=== PATIENT | female | born 1975 | race Caucasian/White ===

== ENCOUNTER 2016-05-28 19:59 | Observation (INO) | payer MEDICAID ==
[2016-05-28] MEDS ORDERED: ONDANSETRON HCL/PF 2 MG/ML VIAL IV ONE (22:03)
[2016-05-28] MEDS ORDERED: MORPHINE SULFATE 4 MG/ML SYRG IV ONE (22:04)
[2016-05-28] MEDS ORDERED: MORPHINE SULFATE 4 MG/ML SYRG ONE (22:12)
[2016-05-28] MEDS ORDERED: ONDANSETRON HCL/PF 2 MG/ML VIAL ONE (22:12)
[2016-05-28] MEDS ORDERED: DIATRIZOATE MEGLU/DIATRIZO SOD 30 ML BTL PO ONE (22:18)
[2016-05-28 22:31] LABS: Albumin * 3.3 gm/dl (3.4-5.0); Anion Gap 12.8 mmol/L (6.8-13.8); BUN/Creatinine Ratio 8.3 (9.0-21.6); Bilirubin, Total 0.7 mg/dL (0.0-1.1); Ca. Corrected For Albumin 8.9 mg/dL (8.4-10.2); Calcium * 8.7 mg/dL (7.9-10.9); Carbon Dioxide 25.3 mmol/L (24-32.6); Hematocrit 40.3 % (37.0-47.0); Hemoglobin 13.7 gm/dL (12.5-16.0); Mean Cell Volume 93.1 fl (78-100); Mean Corpuscular Hemoglobin 31.6 pg (27-31); Mean Platelet Volume 10.7 fl (6.0-9.5); Platelet Count 239 K/mm3 (150-450); Potassium 3.1 mmol/L (3.4-4.6); Red Blood Count 4.33 M/mm3 (4.2-5.4); Red Cell Distribution Width 13.2 % (11.5-14.0); White Blood Count 15.9 K/mm3 (4.0-10.5)
[2016-05-28 23:22] LABS: Urine Bilirubin Negative (NEGATIVE); Urine Ketone Negative (NEGATIVE); Urine Nitrite Negative (NEGATIVE); Urine Protein Negative (NEGATIVE); Urine Urobilinogen Normal (NORMAL); Urine pH 5.5 pH (5.0-7.0)
--- NOTE | 2016-05-28 23:36 | ERNOTE ---
Abdominal HPI - Narrative Date of Service: 05/28/16 - General Chief Complaint: Abdominal Pain Time Seen by Provider: 05/28/16 22:03 Source: patient Exam Limitations: no limitations - Immun/Allergies/Home Medications Immunizatons: IMMUNIZATION HX Immunizations Up to Date Yes History of Influenza Vaccine No Hx Pneumococcal Vaccination No Allergies/Adverse Reactions: Allergies codeine [Codeine] Allergy (Mild, Verified 07/11/14 15:21) rash Penicillins Allergy (Verified 07/11/14 15:21) hives Home Medications: HOME MEDICATIONS NK [No Home Medication] 05/28/16 [Last Taken Unknown] - History of Present Illness Narrative: Patient comes due to RLQ Pain Timing: constant Quality: moderate Activities at Onset: rest Modifying Factors - (Improves): Present: other - nothing Modifying Factors - (Worsens): Present: coughing, sitting up, movement Associated Symptoms: Present: loss of appetite. Absent: headache, back pain, chest pain, neck pain, diarrhea-gross blood, diarrhea-mucous, fatigue, fever/ chills, heartburn, nausea, vomiting, shortness of breath, swelling/mass in abdomen, syncope, weakness Prior Abdominal Problems: Present: none Prior Treatment: Absent: recently seen Review of Systems - Review of Systems Constitutional: Absent: fever, chills EYE: Present: no symptoms reported ENT: Present: no symptoms reported Respiratory: Present: cough - sporadic Cardiology: Present: no symptoms reported Gastrointestinal/Abdominal: Present: nausea, abdominal pain - RLQ. The pain is sharp on palpation and constanly dull. Absent: vomiting, diarrhea, constipation Genitourinary: Absent: frequency, pain, dysuria, hematuria Musculoskeletal: Present: no symptoms reported Skin: Present: no symptoms reported Neurological: Present: no symptoms reported Endocrine: Present: no symptoms reported Hematologic/Lymphatic: Absent: easy bruising, easy bleeding Psych: Present: no symptoms reported All Other Systems: All systems neg except as marked - Patient's Past Medical History Patient History - Medical: No pertinent hx Patient History - Cancer: No Hx of Cancer Patient History - Surgical Procedures: - Social History Living Situations: significant other Smoking Status: Current every day smoker Alcohol Use: occasionally Drug Use: none Physical Exam - Physical Exam General Appearance: Present: wd/wn, alert, no apparent distress, anxious Eye Exam: Normal inspection: bilateral, PERRL: bilateral, EOMI: bilateral Ears, Nose, Throat: Present: normal ENT inspection, hearing grossly normal, normal pharynx. Absent: dry mucous membranes Neck: Present: normal inspection, nontender Respiratory: Present: no respiratory distress, normal breath sounds, no accessory muscle use, chest nontender, lungs clear Cardiovascular/Chest: Present: regular rate, rhythm, no murmur, normal peripheral pulses Gastrointestinal/Abdominal: Present: tenderness - RLQ Pain on palpation, distended - mild, guarding - generalized. Absent: rebound, mass Back Exam: Present: normal inspection, no CVA tenderness Extremity Exam: Present: normal inspection, non-tender, no edema, normal range of motion Neurological Exam: Present: alert, oriented, normal mood/affect, no motor/ sensory deficits Skin Exam: Present: normal color, warm/dry. Absent: diaphoresis, cyanosis, jaundice, pallor Lymphatic Exam: Present: no adenopathy ED Progress - Date and Time Seen: Date and Time: 05/28/16 23:[address] to assess appendix. Patient has been given Tx for hypokalemia 05/29/16 01:23 I had called surgeon and informed of case. Surgeon ordered to call the OR team. I go report by radiologist over the phone and acute appendicitis was noticed. - Results and Orders Patient's Lab Results:: I have reviewed the patient's lab results. Results and Orders: CBC: Leukocytosis CMP: Hypokalemia Negative Ameena/Lip: Negative - Vital Signs Patient's Vital Signs:: I have reviewed the patient's vital signs. Vital Signs: Vital Signs 05/28/16 05/28/16 20:38 22:17 Temperature 35.3 C L Pulse Rate 114 H 95 Respiratory 14 14 Rate Blood Pressure 109/70 95/60 O2 Sat by Pulse 97 97 Oximetry - CT/Ultrasound CT/Ultrasound Narrative: CT report by Radiology noticed: Acute Appendicitis was informed over the phone and on official report. - Progress/Reassessment Chief Complaint: Abdominal Pain - Transfer of Care Expected Disposition: Admit Departure - Departure Clinical Impression: Abdominal pain Qualifiers: Abdominal location: right lower quadrant Qualified Code(s): R10.31 - Right lower quadrant pain Appendicitis Qualifiers: Appendicitis type: acute appendicitis Acute appendicitis type: unspecified acute appendicitis type Qualified Code(s): K35.80 - Unspecified acute appendicitis Disposition: [facility] Condition: Good
[2016-05-28 23:39] LABS: Urine Appearance Clear; Urine Bacteria TRACE; Urine Blood 10 /ul (NEGATIVE); Urine Color Yellow; Urine Hyaline Cast 0-5 /LPF; Urine RBC 0-5 /hpf (0-5); Urine WBC None Seen /hpf (0-5)
[2016-05-28] MEDS: POTASSIUM CHLORIDE 20 MEQ in NORMAL SALINE 1,000 ML IV PRN (23:56)
[2016-05-29] MEDS ORDERED: CEFOXITIN SODIUM 2 GM in DEXTROSE 5 % IN WATER 100 ML IV ONE ×2 (01:45)
--- NOTE | 2016-05-29 02:18 | HP ---
Chief Complaint - Chief Complaint Date of Service: 05/29/16 Time of Service: 02:03 Chief Complaint: abdominal pain History of Present Illness: She has had abdominal pain for two days. It was generalized at first, now has moved to [facility]. Hurts to move and cough. Bowels moved today. - Patient's Past Medical History Patient History - Medical: No pertinent hx Patient History - Cancer: No Hx of Cancer Patient History - Surgical Procedures: - Family History Family History:: no untoward family reactions to anesthesia, no familial bleeding tendencies - Social History Living Situations: significant other Smoking Status: Current every day smoker Alcohol Use: occasionally Drug Use: none - Immunizations Hx Pneumococcal Vaccination: More Information Required to Determine History of Influenza Vaccine: More Information Required to Determine Review Of Systems (GEN) - Review of Systems Generalized/Overall Review: Present: Malaise EENTM: Present: No Symptoms Reported Respiratory: Present: Cough Cardiac: Present: No Symptoms Reported Abdominal: Present: Abdominal Pain Genitourinary: Present: No Symptoms Reported Musculoskeletal: Present: No Symptoms Reported Neurological: Present: No Symptoms Reported Skin: Present: No Symptoms Reported Immunizations: IMMUNIZATION HX Immunizations Up to Date Yes History of Influenza Vaccine No Hx Pneumococcal Vaccination No Allergies/Adverse Reactions: Allergies Allergy/AdvReac Type Severity Reaction Status Date / Time codeine [Codeine] Allergy Mild rash Verified 07/11/14 15:21 Penicillins Allergy Verified 07/11/14 15:21 Home Medications: HOME MEDICATIONS NK [No Home Medication] 05/28/16 [Last Taken Unknown] Exam - Exam Vital Signs: Vital Signs - Last Taken Temp 35.3 C L 05/28/16 20:38 Pulse 90 05/29/16 01:10 Resp 14 05/29/16 01:10 BP 105/59 05/29/16 01:10 Pulse Ox 98 05/29/16 01:10 Constitutional: Present: Alert, Oriented x3, Cooperative, Well developed, Well nourished, Mild distress ENT Exam: Present: normal ENT inspection Eye Exam: bilateral eye: normal inspection Neck: Present: full range of motion, normal inspection Back Exam: Present: no CVA tenderness Breasts: Present: Exam deferred Respiratory: Present: lungs clear, normal breath sounds, no respiratory distress Cardiovascular/Chest: Present: normal peripheral pulses, regular rate, rhythm, no murmur Abdomen: Present: other - C Section incisions, RLQ tenderness with rebound /Rectal: Present: Exam deferred Extremity: Present: normal range of motion, normal inspection, no pedal edema, no calf tenderness Skin Exam: Present: warm/dry, pallor Neurologic: Present: avionics technician II-XII nml as tested, normal cerebellar test, no motor/ sensory deficits Appearance: Present: appropriate appearance, appropriate insight Eye contact: Present: cooperative, good eye contact, normal speech Thoughts: Present: normal thought pattern Diagnostic Studies: Abnormal Lab Results 05/28/16 05/28/16 05/28/16 Range/Units 22:15 22:15 23:10 WBC 15.9 H (4.0-10.5) K/mm3 MCH 31.6 H (27-31) pg MPV 10.7 H (6.0-9.5) fl Immature Gran # (Auto) 0.07 H (0.000-0.0310) K/mm3 Neutrophils % 82.0 H (42-75.0) % Lymphocytes % 11.7 L (20-51) % Neutrophils # 13.0 H (1.3-6.0) K/mm3 Potassium 3.1 L (3.4-4.6) mmol/L BUN/Creatinine Ratio 8.3 L (9.0-21.6) ALT 12 L (19-67) U/L Albumin 3.3 L (3.4-5.0) gm/dl Amylase 16 L (25-115) U/L Lipase 59 L (73-393) U/L Urine Blood 10 H (NEGATIVE) /ul Hyaline Casts 0-5 H (NONE) /LPF Laboratory Results WBC 15.9 K/mm3 (4.0-10.5) H 05/28/16 22:15 RBC 4.33 M/mm3 (4.2-5.4) 05/28/16 22:15 Hgb 13.7 gm/dL (12.5-16.0) 05/28/16 22:15 Hct 40.3 % (37.0-47.0) 05/28/16 22:15 MCV 93.1 fl (78-100) 05/28/16 22:15 MCH 31.6 pg (27-31) H 05/28/16 22:15 MCHC 34.0 g/dl (32-36) 05/28/16 22:15 RDW 13.2 % (11.5-14.0) 05/28/16 22:15 Plt Count 239 K/mm3 (150-450) 05/28/16 22:15 MPV 10.7 fl (6.0-9.5) H 05/28/16 22:15 Immature Gran % (Auto) 0.40 % (0.001-0.429) 05/28/16 22:15 Immature Gran # (Auto) 0.07 K/mm3 (0.000-0.0310) H 05/28/16 22:15 Neutrophils % 82.0 % (42-75.0) H 05/28/16 22:15 Lymphocytes % 11.7 % (20-51) L 05/28/16 22:15 Monocytes % 4.7 % (0.0-9) 05/28/16 22:15 Eosinophils % 1.0 % (0.0-3.0) 05/28/16 22:15 Basophils % 0.2 % (0.0-1.0) 05/28/16 22:15 Nucleated RBC % 0.0 k/mm3 (0-1) 05/28/16 22:15 Neutrophils # 13.0 K/mm3 (1.3-6.0) H 05/28/16 22:15 Lymphocytes # 1.9 k/mm3 (1.5-3.5) 05/28/16 22:15 Monocytes # 0.7 k/mm3 (0.0-1.0) 05/28/16 22:15 Eosinophils # 0.2 k/mm3 (0.0-0.7) 05/28/16 22:15 Absolute Basophils 0.0 k/mm3 (0.0-0.1) 05/28/16 22:15 Sodium 138 mmol/L (132-142) 05/28/16 22:15 Plasma Sodium 138 mmol/L (130-142) 05/28/16 22:15 Potassium 3.1 mmol/L (3.4-4.6) L 05/28/16 22:15 Chloride 103 mmol/L (97-106) 05/28/16 22:15 Carbon Dioxide 25.3 mmol/L (24-32.6) 05/28/16 22:15 Anion Gap 12.8 mmol/L (6.8-13.8) 05/28/16 22:15 BUN 7 mg/dL (3-23) 05/28/16 22:15 Creatinine 0.84 mg/dL (0.4-1.4) 05/28/16 22:15 Est GFR (Non-Af Amer) 81 mL/min (60-130) D 05/28/16 22:15 BUN/Creatinine Ratio 8.3 (9.0-21.6) L 05/28/16 22:15 Random Glucose 105 mg/dL (70-110) 05/28/16 22:15 Calcium 8.7 mg/dL (7.9-10.9) 05/28/16 22:15 Calcium Adj for Albumin 8.9 mg/dL (8.4-10.2) 05/28/16 22:15 Total Bilirubin 0.7 mg/dL (0.0-1.1) 05/28/16 22:15 AST 6 U/L (0-48) 05/28/16 22:15 ALT 12 U/L (19-67) L 05/28/16 22:15 Alkaline Phosphatase 81 U/L (50-170) 05/28/16 22:15 Total Protein 7.0 gm/dL (6.2-8.2) 05/28/16 22:15 Albumin 3.3 gm/dl (3.4-5.0) L 05/28/16 22:15 Amylase 16 U/L (25-115) L 05/28/16 22:15 Lipase 59 U/L (73-393) L 05/28/16 22:15 Serum HCG, Qual Negative (NEGATIVE) 05/28/16 22:15 Urine Color Yellow 05/28/16 23:10 Urine Appearance Clear 05/28/16 23:10 Urine pH 5.5 pH (5.0-7.0) 05/28/16 23:10 Ur Specific Vista 1.010 SP.GR. (1.005-1.010) 05/28/16 23:10 Urine Protein Negative mg/dL (NEGATIVE) 05/28/16 23:10 Urine Glucose (UA) Negative mg/dL (NEGATIVE) 05/28/16 23:10 Urine Ketones Negative mg/dL (NEGATIVE) 05/28/16 23:10 Urine Blood 10 /ul (NEGATIVE) H 05/28/16 23:10 Urine Nitrate Negative (NEGATIVE) 05/28/16 23:10 Urine Bilirubin Negative mg/dl (NEGATIVE) 05/28/16 23:10 Urine Urobilinogen Normal EU/dl (NORMAL) 05/28/16 23:10 Ur Leukocyte Esterase Negative /ul (NEGATIVE) 05/28/16 23:10 Urine RBC 0-5 /hpf (0-5) 05/28/16 23:10 Urine WBC None seen /hpf (0-5) 05/28/16 23:10 Ur Epithelial Cells 0-5 /hpf (0-5) 05/28/16 23:10 Urine Bacteria Trace (NONE) 05/28/16 23:10 Hyaline Casts 0-5 /LPF (NONE) H 05/28/16 23:10 Urine Culture Comments No culture indicated 05/28/16 23:10 CT shows acute appendicitis Assessment/Plan - Assessment/Plan (1) Appendicitis Assessment: Discussed appendicitis and its treatment. Appendectomy (laparoscopic or open) was explained including risks, possible complications or need to convert to open operation. Expected hospital course explained. Her questions were answered to her apparent satisfaction and informed consent for operation obtained. Chlorhexidine wipes, IV Mefoxin, SCD's. Problem: Acute Qualifiers: Appendicitis type: acute appendicitis Acute appendicitis type: unspecified acute appendicitis type Qualified Code(s): K35.80 - Unspecified acute appendicitis
[2016-05-29] MEDS ORDERED: RINGERS SOLUTION,LACTATED 1,000 ML IV ONE (02:35)
[2016-05-29] MEDS ORDERED: BUPIVACAINE HCL/EPINEPHRINE 50 ML VIAL IJ ONE ×2 (03:00)
[2016-05-29] MEDS ORDERED: MUPIROCIN 22 APPL TUBE TP ONE ×2 (03:04→03:40)
[2016-05-29] MEDS: POTASSIUM CHLORIDE 20 MEQ in NORMAL SALINE 1,000 ML IV PRN (03:37)
[2016-05-29] MEDS ORDERED: MORPHINE SULFATE 2 MG/ML DISP.SYRIN IV PRN (03:53)
--- NOTE | 2016-05-29 04:21 | OR ---
Operative Report - Dictated Report Narrative: OPERATIVE REPORT DATE OF OPERATION: 05/29/2016 PREOPERATIVE DIAGNOSIS: Acute appendicitis POSTOPERATIVE DIAGNOSIS: Acute gangrenous appendicitis (pathology pending) OPERATION: Laparoscopic appendectomy SURGEON: Alex Sumner MD ANESTHESIA: Gen. endotracheal Richar Brown CRNA INDICATIONS FOR PROCEDURE: The patient is a 40-year-old female presented to the emergency room with a 2 day history of abdominal pain which is migrated to the right lower quadrant. She was found to have an elevated WBC with direct and rebound tenderness and CT scan evidence of acute appendicitis. FINDINGS: Advanced acute appendicitis NARRATIVE OF PROCEDURE: The patient was identified in the holding area, and prior to the administration of anesthetic a multidisciplinary timeout was observed. The patient was placed supine, SCDs were applied, and 2 g of intravenous Mefoxin administered. Gen. endotracheal anesthetic was administered. The patient's abdomen was prepped with Betadine solution and a generous operating field isolated with 4 sterile towels. The remainder the patient was covered with a sterile disposable drape. A transverse infraumbilical skin incision was made. Dissection was carried along the umbilical stalk until the fascia of the linea alba was encountered. This was incised. The peritoneum was then elevated and incised to allow entry into the abdomen under direct vision. A Coello cannula was placed and the abdomen insufflated with CO2. The laparoscopic camera was introduced and the abdomen briefly explored. Those portions of the liver, gallbladder, stomach, small bowel, and colon visualized appeared normal. There was a small amount of clear green fluid in the right lower quadrant. The appendix was not immediately visible. Under direct vision 2 additional working ports were inserted through separate skin incisions, one suprapubically and one in the left lower quadrant. The apex of the cecum was grasped and retracted. The tip of an acutely inflamed appendix was visualized. The appendix was mobilized by blunt dissection and elevated. The base of the appendix and mesoappendix was then transected with a laparoscopic SHARA stapling device. The the stump of the appendix was seen to be gas and liquid tight and hemostatic. The mesoappendix appeared hemostatic. The appendix was placed in an Endobag and parked in the right lower quadrant. The right lower quadrant and pelvis were suctioned clean. The smaller working ports were then withdrawn under direct vision to ensure entry site hemostasis. The appendix was withdrawn in conjunction with the Coello cannula. The pneumoperitoneum was allowed to escape, and after receiving a correct sponge needle and instrument count attention was turned to closing the abdomen. The fascia and peritoneum were approximated with interrupted sutures of #1 Vicryl. Skin incisions were approximated with interrupted vertical mattress sutures of 4-0 nylon. The operative sites were washed and dried. Dressings of Bactroban ointment and large Band-Aids were applied to the small port sites. The umbilical incision was dressed with Bactroban ointment, 2 x 2, large Band-Aid and Medipore tape . The operative procedure was terminated at this point. The patient tolerated the anesthetic and procedure well without complication. There was no measurable blood loss. The appendix was submitted to pathology. 0.5% Marcaine with epinephrine was used for local anesthetic infiltration. The patient was transferred to the recovery room awake, extubated, and in stable condition. Reviewed and electronically signed
[2016-05-29] MEDS ORDERED: POTASSIUM CHLORIDE 20 MEQ in NORMAL SALINE 1,000 ML IV PRN (07:59)
[2016-05-29] MEDS: CEFOXITIN SODIUM 2 GM in DEXTROSE 5 % IN WATER 100 ML IV SCH ×4 (08:18→13:59)
[2016-05-29] MEDS: oxyCODONE HCL/ACETAMINOPHEN 1 TAB TABLET PO PRN ×2 (10:32→16:07)
[2016-05-29 13:57] VITALS: BP 119/67
--- NOTE | 2016-05-29 15:46 | DS ---
(1) Appendicitis Problem: Acute Qualifiers: Appendicitis type: acute appendicitis Acute appendicitis type: unspecified acute appendicitis type Qualified Code(s): K35.80 - Unspecified acute appendicitis Description of Stay: Underwent laparoscopic appendectomy for acute appendicitis. Chlorhexidine wipes and pre and post-op IV Mefoxin. VTE prophylaxis with SCD' and early ambulation. Added KCL for low K+. VS remained normal. Presenting pain resolved. Tolerated PO intake and pain controlled with PO Percocet. Incisions clean and lower port bandaid changed. Up independently. Procedures Performed: see notes below - laparoscopic appendectomy Discharge Disposition: Home self care Disposition: Home self-care Condition: Good Discharge Activity: Activity as tolerated, No Lifting Discharge Diet: General/regular food Problem Oriented Discharge Instructions to Patient/Family: Laparoscopic Appendectomy, Adult, Care After, [id number] Additional Patient Instructions (free text): To call the office tomorrow [phone] for f/u appointment on 06/06/16 Prescriptions (Any new or edited meds): RX: oxyCODONE HCL/ACETAMINOPHEN [Percocet 5 MG/325 MG] 2 tab PO Q4H PRN #30 tablet PRN Reason: Moderate Pain Complete Home Medications List: Complete Home Medication List: RX: oxyCODONE HCL/ACETAMINOPHEN [Percocet 5 MG/325 MG] 2 tab PO Q4H PRN #30 tablet 05/29/16
== END 2016-05-29 17:47 | disposition home or self-care (01) ==
LOC: ER 19:59 → AMB 05-29 01:40 → MS 05-29 04:15
PROVIDERS: ADMIT Surgery; ATTEND Surgery
PROC: 0DTJ4ZZ Resection of Appendix, Percutaneous Endoscopic Approach (ICD-10-PCS; principal; 2016-05-29 02:30)
DX: K35.80 Unspecified acute appendicitis (principal)
CPT/HCPCS: 36415; 44970; 74177; 80053; 81001; 82150; 83690; 84703; 85025; 88304; 96374; 96375; 99284; G0378